=== PATIENT | male | born 1965 | race Caucasian/White ===

== ENCOUNTER → 2023-08-21 | Outpatient (CLI) | payer OTHER ==
--- NOTE | 2023-08-21 08:53 | CTL ---
EXAMINATION TYPE: CT Low Dose Lung DATE OF EXAM ORDERED: 08/21/2023 HISTORY: Long-term tobacco use. Lung cancer screening CT DLP: 110.[address] CTDI: 2.6 mGy Automated exposure control for dose reduction was used. SCREENING VISIT: Baseline COMPARISON: None TECHNIQUE: Low dose computed tomography scan was performed through the chest at 1 mm thick sections a nd reconstructed images in multiple planes at 1 mm and [address] DIAGNOSTIC QUALITY: Satisfactory FINDINGS: LUNG NODULES: Present, detailed below: There is 7 mm round peripheral left lower lobe nodule noted axial image 236. There is a 6 x 4 mm triny pheral left lower lobe nodule noted axial image 262. There is 7 mm posterior peripheral right lower l obe nodule axial image 227. Smaller roughly 4 mm subpleural right middle lobe nodule axial image 185. LUNGS: COPD: Severity: None Fibrosis: Severity: None Lymph nodes: None Other findings: None RIGHT PLEURAL SPACE: Effusion: None Calcification: None Thickening: None Pneumothorax: None LEFT PLEURAL SPACE: Effusion: None Calcification: None Thickening: None Pneumothorax: None HEART: Heart Size: Normal Coronary Calcification: None Pericardial Effusion: None OTHER FINDINGS: Upper abdomen: None Bony thorax: None Supraclavicular region: None Other: None IMPRESSION: Nonspecific scattered small bilateral lower lung nodules up to 7 mm in the bilateral lowe r lobes CT LUNG RAD AND CT CHEST RECOMMENDATION: Lung-Rad 3 Probably Benign: 6 month follow-up LDCT. S Modifier (other clinically significant findings): None
== END | disposition home or self-care (01) ==
LOC: RADCTMAIN 07:03
PROVIDERS: ATTEND Family Medicine
DX: Z12.2 Encounter for screening for malignant neoplasm of respiratory organs (principal); F17.210 Nicotine dependence, cigarettes, uncomplicated; R91.8 Other nonspecific abnormal finding of lung field
CPT/HCPCS: 71271

== ENCOUNTER 2023-08-24 10:57 | Observation (INO) | payer OTHER ==
--- NOTE | 2023-08-24 11:44 | ED ---
Altered Mental Status HPI - General Chief Complaint: Altered Mental Status Stated Complaint: loss of memory Time Seen by Provider: 08/24/23 11:05 Source: patient Mode of arrival: ambulatory Limitations: no limitations - History of Present Illness Initial Comments: 57-year-old male with past medical history of hypertension who presents to the emergency department reporting alterations in his mental status. 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 He remembers sending his son to go do her job while his friend was doing some cleanup work. States that he lost track of time for approximately 1.5-2 hours. He realized that he had a lapse in his memory when he was driving a piece of his equipment back up to the building. Here members that he got a phone call but does not remember what was said over the call. He can't remember if he spoke with a female or male. He denies having a headache or any visual changes. No chest pain or shortness of breath. No unilateral numbness or weak ness. No history of similar in the past. He did start a medication for blood pressure control within the past month. No history of seizures. Patient feels back to his baseline but cannot remember the events of this morning. - Related Data Home Medications Medication Instructions Recorded Confirmed Losartan [Cozaar] 25 mg PO DAILY 08/24/23 08/24/23 Previous Rx's Medication Instructions Recorded Aspirin 325 mg PO DAILY #30 tab 08/25/23 Aspirin EC [Ecotrin Low Dose] 81 mg PO DAILY #30 tab 08/25/23 Nicotine 14Mg/24Hr Patch [Habitrol] 1 patch TRANSDERM DAILY #30 patch 08/25/23 Allergies Allergy/AdvReac Type Severity Reaction Status Date / Time No Known Allergies Allergy Verified 08/24/23 11:39 Review of Systems ROS Statement: Those systems with pertinent positive or pertinent negative responses have been documented in the HPI. ROS Other: All systems not noted in ROS Statement are negative. Past Medical History Past Medical History: Hypertension History of Any Multi-Drug Resistant Organisms: None Reported Past Surgical History: No Surgical Hx Reported Past Psychological History: No Psychological Hx Reported Smoking Status: Current every day smoker Past Alcohol Use History: Occasional Past Drug Use History: None Reported General Exam Limitations: no limitations General appearance: alert, in no apparent distress Head exam: Present: atraumatic, normocephalic, normal inspection Eye exam: Present: normal appearance, PERRL, EOMI. Absent: scleral icterus, conjunctival injection, periorbital swelling ENT exam: Present: normal exam, mucous membranes moist Neck exam: Present: normal inspection. Absent: tenderness, meningismus, lymphadenopathy Respiratory exam: Present: normal lung sounds bilaterally. Absent: respiratory distress, wheezes, rales, rhonchi, stridor Cardiovascular Exam: Present: regular rate, normal rhythm, normal heart sounds. Absent: systolic murmur, diastolic murmur, rubs, gallop, clicks GI/Abdominal exam: Present: soft, normal bowel sounds. Absent: distended, tenderness, guarding, rebound, rigid Extremities exam: Present: normal inspection, full ROM, normal capillary refill. Absent: tenderness, pedal edema, joint swelling, calf tenderness Back exam: Present: normal inspection Neurological exam: Present: alert, oriented X3, CN II-XII intact Psychiatric exam: Present: normal affect, normal mood Skin exam: Present: warm, dry, intact, normal color. Absent: rash Course Vital Signs 08/24/23 08/24/23 08/24/23 11:00 11:27 11:30 Temperature 98.1 F Pulse Rate 65 Pulse Rate [ Knot Picker Cloth ] Respiratory 16 Rate Blood Pressure 173/98 153/94 Blood Pressure [Left Arm] O2 Sat by Pulse 96 97 96 Oximetry 08/24/23 08/24/23 08/24/23 11:45 12:00 12:15 Temperature Pulse Rate 52 L 56 L 53 L Pulse Rate [ Knot Picker Cloth ] Respiratory 18 17 18 Rate Blood Pressure 151/99 143/99 151/98 Blood Pressure [Left Arm] O2 Sat by Pulse 97 96 94 L Oximetry 08/24/23 08/24/23 08/24/23 12:30 12:45 13:00 Temperature Pulse Rate 50 L 51 L 54 L Pulse Rate [ Knot Picker Cloth ] Respiratory 18 19 16 Rate Blood Pressure 140/101 Blood Pressure [Left Arm] O2 Sat by Pulse 97 97 96 Oximetry 08/24/23 08/24/23 08/24/23 16:18 18:25 20:58 Temperature 98.2 F Pulse Rate 55 L 59 L 58 L Pulse Rate [ Knot Picker Cloth ] Respiratory 18 18 18 Rate Blood Pressure 146/100 139/89 132/78 Blood Pressure [Left Arm] O2 Sat by Pulse 100 96 98 Oximetry 08/25/23 08/25/23 08/25/23 02:00 05:00 07:00 Temperature 97.7 F 97.8 F 97.5 F L Pulse Rate Pulse Rate [ 54 L 53 L 53 L Knot Picker Cloth ] Respiratory 16 16 18 Rate Blood Pressure Blood Pressure 110/70 106/68 123/72 [Left Arm] O2 Sat by Pulse 95 96 96 Oximetry Medical Decision Making - Medical Decision Making Was pt. sent in by a medical professional or institution (YAMILET Gallardo, MACHINE FOLDER, urgent care, hospital, or snf...) When possible be specific @ -No Did you speak to anyone other than the patient for history (EMS, parent, family, police, friend...)? What history was obtained from this source @ -significant other, son Did you review nursing and triage notes (agree or disagree)? Why? @ -I reviewed and agree with nursing and triage notes Were old charts reviewed (outside hosp., previous admission, EMS record, old EKG, old radiological studies, urgent care reports/EKG's, snf records)? Report findings @ -No old charts were reviewed Differential Diagnosis (chest pain, altered mental status, abdominal pain women, abdominal pain men, vaginal bleeding, weakness, fever, dyspnea, syncope, headache, dizziness, GI bleed, back pain, seizure, CVA, palpatations, mental health, musculoskeletal)? @ -cva, tia, seizure, complex migraine, transient global amnesia EKG interpreted by me (3pts min.). @ -yes and demonstrates sinus bradycardia with rate of 59. CO interval 143. QRS is 114. QTC of 401. No acute ST segment elevations or depressions X-rays interpreted by me (1pt min.). @ -yes, no acute process CT interpreted by me (1pt min.). @ -yes, no acute process U/S interpreted by me (1pt. min.). @ -None done What testing was considered but not performed or refused? (CT, X-rays, U/S, labs)? Why? @ -None What meds were considered but not given or refused? Why? @ -None Did you discuss the management of the patient with other professionals i.e. YAMILET Gallardo, MACHINE FOLDER, lab, RT, psych nurse, 7th grade social studies teacher, seo coordinator, teacher, commanding officer motorized squad, window caser)? Give summary @ -Dr. cruz Was smoking cessation discussed for >3mins.? @ -No Was critical care preformed (if so, how long)? @ -No Were there social determinants of health that impacted care today? How? (Homelessness, low income, unemployed, alcoholism, drug addiction, transportation, low edu. Level, literacy, decrease access to med. care, [facility], rehab)? @ -No Was there de-escalation of care discussed even if they declined (Discuss DNR or withdrawal of care, Hospice)? DNR status @ -No What co-morbidities impacted this encounter? (DM, HTN, Smoking, COPD, CAD, Cancer, CVA, ARF, Chemo, Hep., AIDS, mental health diagnosis, sleep apnea, morbid obesity)? @ -htn Was patient admitted / discharged? Hospital course, mention meds given and route, prescriptions, significant lab abnormalities, going to OR and other pertinent info. @ -Upon arrival patient was placed into room trauma 2. Thorough history and physical exam is performed. NIH is assessed and is 0 at this time. Patient had an episode of global amnesia. Laboratory studies are obtained. CT is performed of the brain as well as CT angiography. Results are discussed with the patient. Due to his transient encephalopathy and did recommend admission for neurologic consultation. Spoke with Dr. Cruz for admission Undiagnosed new problem with uncertain prognosis? @ -yes Drug Therapy requiring intensive monitoring for toxicity (Heparin, Nitro, Insulin, Cardizem)? @ -No Were any procedures done? @ -No Diagnosis/symptom? @ -acute transient memory loss, possible tia vs transient global amnesia Acute, or Chronic, or Acute on Chronic? @ -acute Uncomplicated (without systemic symptoms) or Complicated (systemic symptoms)? @ -complicated Side effects of treatment? @ -No Exacerbation, Progression, or Severe Exacerbation? @ -No Poses a threat to life or bodily function? How? (Chest pain, [place], [place], pneumonia, PE, COPD, DKA, ARF, appy, cholecystitis, CVA, Diverticulitis, Homicidal, Suicidal, threat to staff... and all critical care pts) @ -yes, patients with symptoms concerning for possible tia, cva, seizure, etc - Lab Data Result diagrams: 08/25/23 06:20 08/25/23 06:20 Lab Results 1108/24/23 08/24/23 Range/Units 11:33 11:33 11:33 WBC 7.1 (3.8-10.6) k/uL RBC 5.58 (4.30-5.90) m/uL Hgb 17.6 H (13.0-17.5) gm/dL Hct 51.3 (39.0-53.0) % MCV 92.0 (80.0-100.0) fL MCH 31.6 (25.0-35.0) pg MCHC 34.3 (31.0-37.0) g/dL RDW 12.9 (11.5-15.5) % Plt Count 194 (150-450) k/uL MPV 10.2 Neutrophils % 60 % Lymphocytes % 28 % Monocytes % 7 % Eosinophils % 3 % Basophils % 1 % Neutrophils # 4.3 (1.3-7.7) k/uL Lymphocytes # 2.0 (1.0-4.8) k/uL Monocytes # 0.5 (0-1.0) k/uL Eosinophils # 0.2 (0-0.7) k/uL Basophils # 0.0 (0-0.2) k/uL PT (10.0-12.5) sec INR (<1.2) APTT (22.0-30.0) sec Carbon Monoxide, Quant 3.7 (<10.0) % Sodium (137-145) mmol/L Potassium (3.5-5.1) mmol/L Chloride (98-107) mmol/L Carbon Dioxide (22-30) mmol/L Anion Gap mmol/L BUN (9-20) mg/dL Creatinine (0.66-1.25) mg/dL Est GFR (CKD-EPI)AfAm (>60 ml/min/1.73 sqM) Est GFR (CKD-EPI)NonAf (>60 ml/min/1.73 sqM) Glucose (74-99) mg/dL POC Glucose (mg/dL) (70-110) mg/dL POC Glu Telecommunications Linesworker ID Calcium (8.4-10.2) mg/dL Total Bilirubin (0.2-1.3) mg/dL AST (17-59) U/L ALT (4-49) U/L Alkaline Phosphatase (38-126) U/L Troponin I (0.000-0.034) ng/mL Total Protein (6.3-8.2) g/dL Albumin (3.5-5.0) g/dL Urine Color Light Yellow Urine Appearance Clear (Clear) Urine pH 6.5 (5.0-8.0) Ur Specific [place] 1.039 H (1.001-1.035) Urine Protein Negative (Negative) Urine Glucose (UA) Negative (Negative) Urine Ketones Negative (Negative) Urine Blood Negative (Negative) Urine Nitrite Negative (Negative) Urine Bilirubin Negative (Negative) Urine Urobilinogen <2.0 (<2.0) mg/dL Ur Leukocyte Esterase Negative (Negative) Urine Opiates Screen Not Detected (NotDetected) Ur Oxycodone Screen Not Detected (NotDetected) Urine Methadone Screen Not Detected (NotDetected) Ur Propoxyphene Screen Not Detected (NotDetected) Ur Barbiturates Screen Not Detected (NotDetected) U Tricyclic Antidepress Not Detected (NotDetected) Ur Phencyclidine Scrn Not Detected (NotDetected) Ur Amphetamines Screen Not Detected (NotDetected) U Methamphetamines Scrn Not Detected (NotDetected) U Benzodiazepines Scrn Not Detected (NotDetected) Urine Cocaine Screen Not Detected (NotDetected) U Marijuana (THC) Screen Not Detected (NotDetected) Serum Alcohol mg/dL 08/24/23 08/24/23 08/24/23 Range/Units 11:45 11:45 11:45 WBC (3.8-10.6) k/uL RBC (4.30-5.90) m/uL Hgb (13.0-17.5) gm/dL Hct (39.0-53.0) % MCV (80.0-100.0) fL MCH (25.0-35.0) pg MCHC (31.0-37.0) g/dL RDW (11.5-15.5) % Plt Count (150-450) k/uL MPV Neutrophils % % Lymphocytes % % Monocytes % % Eosinophils % % Basophils % % Neutrophils # (1.3-7.7) k/uL Lymphocytes # (1.0-4.8) k/uL Monocytes # (0-1.0) k/uL Eosinophils # (0-0.7) k/uL Basophils # (0-0.2) k/uL PT 10.8 (10.0-12.5) sec INR 1.0 (<1.2) APTT 25.0 (22.0-30.0) sec Carbon Monoxide, Quant (<10.0) % Sodium 138 (137-145) mmol/L Potassium 4.2 (3.5-5.1) mmol/L Chloride 104 (98-107) mmol/L Carbon Dioxide 22 (22-30) mmol/L Anion Gap 12 mmol/L BUN 22 H (9-20) mg/dL Creatinine 1.17 (0.66-1.25) mg/dL Est GFR (CKD-EPI)AfAm 79 (>60 ml/min/1.73 sqM) Est GFR (CKD-EPI)NonAf 68 (>60 ml/min/1.73 sqM) Glucose 102 H (74-99) mg/dL POC Glucose (mg/dL) (70-110) mg/dL POC Glu Telecommunications Linesworker ID Calcium 8.7 (8.4-10.2) mg/dL Total Bilirubin 0.6 (0.2-1.3) mg/dL AST 35 (17-59) U/L ALT 40 (4-49) U/L Alkaline Phosphatase 80 (38-126) U/L Troponin I <0.012 (0.000-0.034) ng/mL Total Protein 6.5 (6.3-8.2) g/dL Albumin 4.0 (3.5-5.0) g/dL Urine Color Urine Appearance (Clear) Urine pH (5.0-8.0) Ur Specific [place] (1.001-1.035) Urine Protein (Negative) Urine Glucose (UA) (Negative) Urine Ketones (Negative) Urine Blood (Negative) Urine Nitrite (Negative) Urine Bilirubin (Negative) Urine Urobilinogen (<2.0) mg/dL Ur Leukocyte Esterase (Negative) Urine Opiates Screen (NotDetected) Ur Oxycodone Screen (NotDetected) Urine Methadone Screen (NotDetected) Ur Propoxyphene Screen (NotDetected) Ur Barbiturates Screen (NotDetected) U Tricyclic Antidepress (NotDetected) Ur Phencyclidine Scrn (NotDetected) Ur Amphetamines Screen (NotDetected) U Methamphetamines Scrn (NotDetected) U Benzodiazepines Scrn (NotDetected) Urine Cocaine Screen (NotDetected) U Marijuana (THC) Screen (NotDetected) Serum Alcohol <10 mg/dL 08/24/23 Range/Units 11:54 WBC (3.8-10.6) k/uL RBC (4.30-5.90) m/uL Hgb (13.0-17.5) gm/dL Hct (39.0-53.0) % MCV (80.0-100.0) fL MCH (25.0-35.0) pg MCHC (31.0-37.0) g/dL RDW (11.5-15.5) % Plt Count (150-450) k/uL MPV Neutrophils % % Lymphocytes % % Monocytes % % Eosinophils % % Basophils % % Neutrophils # (1.3-7.7) k/uL Lymphocytes # (1.0-4.8) k/uL Monocytes # (0-1.0) k/uL Eosinophils # (0-0.7) k/uL Basophils # (0-0.2) k/uL PT (10.0-12.5) sec INR (<1.2) APTT (22.0-30.0) sec Carbon Monoxide, Quant (<10.0) % Sodium (137-145) mmol/L Potassium (3.5-5.1) mmol/L Chloride (98-107) mmol/L Carbon Dioxide (22-30) mmol/L Anion Gap mmol/L BUN (9-20) mg/dL Creatinine (0.66-1.25) mg/dL Est GFR (CKD-EPI)AfAm (>60 ml/min/1.73 sqM) Est GFR (CKD-EPI)NonAf (>60 ml/min/1.73 sqM) Glucose (74-99) mg/dL POC Glucose (mg/dL) 104 (70-110) mg/dL POC Glu Telecommunications Linesworker ID Dorothy Hagan Calcium (8.4-10.2) mg/dL Total Bilirubin (0.2-1.3) mg/dL AST (17-59) U/L ALT (4-49) U/L Alkaline Phosphatase (38-126) U/L Troponin I (0.000-0.034) ng/mL Total Protein (6.3-8.2) g/dL Albumin (3.5-5.0) g/dL Urine Color Urine Appearance (Clear) Urine pH (5.0-8.0) Ur Specific [place] (1.001-1.035) Urine Protein (Negative) Urine Glucose (UA) (Negative) Urine Ketones (Negative) Urine Blood (Negative) Urine Nitrite (Negative) Urine Bilirubin (Negative) Urine Urobilinogen (<2.0) mg/dL Ur Leukocyte Esterase (Negative) Urine Opiates Screen (NotDetected) Ur Oxycodone Screen (NotDetected) Urine Methadone Screen (NotDetected) Ur Propoxyphene Screen (NotDetected) Ur Barbiturates Screen (NotDetected) U Tricyclic Antidepress (NotDetected) Ur Phencyclidine Scrn (NotDetected) Ur Amphetamines Screen (NotDetected) U Methamphetamines Scrn (NotDetected) U Benzodiazepines Scrn (NotDetected) Urine Cocaine Screen (NotDetected) U Marijuana (THC) Screen (NotDetected) Serum Alcohol mg/dL Disposition Clinical Impression: Acute encephalopathy Disposition: ADMITTED IP TO THIS [facility] Condition: Stable Is patient prescribed a controlled substance at d/c from ED?: No Time of Disposition: 14:22 Decision to Admit Reason: Admit from EC Decision Date: 08/24/23 Decision Time: 14:23
[2023-08-24 11:56] LABS: Glucose,Whole Blood 104 mg/dL (70-110)
[2023-08-24 12:03] LABS: Basophils % (A) 1 %; Eosinophils # (A) 0.2 k/uL (0-0.7); Eosinophils % (A) 3 %; HCT 51.3 % (39.0-53.0); HGB 17.6 gm/dL (13.0-17.5); Lymphocytes % (A) 28 %; MCH 31.6 pg (25.0-35.0); MCHC 34.3 g/dL (31.0-37.0); Mean Platelet Volume 10.2; Monocytes # (A) 0.5 k/uL (0-1.0); Monocytes % (A) 7 %; Neutrophils # (A) 4.3 k/uL (1.3-7.7); Neutrophils % (A) 60 %; Platelet Count 194 k/uL (150-450); RBC 5.58 m/uL (4.30-5.90); RDW 12.9 % (11.5-15.5); WBC 7.1 k/uL (3.8-10.6)
--- NOTE | 2023-08-24 12:48 | CT ---
EXAMINATION TYPE: CT brain wo con DATE OF EXAM: 08/24/2023 COMPARISON: None available. HISTORY: altered mental status, confusion CT DLP: 1078.6 mGycm Automated exposure control for dose reduction was used. FINDINGS: There is no acute intracranial hemorrhage, mass, mass effect, midline shift, extra axial fluid collec tion or hydrocephalus. The mayo-white distinction is intact without evidence of an acute major vessel infarct. There is some mild mucosal thickening within the anterior ethmoid air cells. The visualized paranasal sinuses mastoid air cells otherwise appear clear. IMPRESSION: NO ACUTE INTRACRANIAL PROCESS.
--- NOTE | 2023-08-24 12:54 | XR ---
EXAMINATION TYPE: XR chest 2V DATE OF EXAM: 08/24/2023 COMPARISON: NONE HISTORY: Shortness of breath TECHNIQUE: Frontal and lateral views of the chest are obtained. FINDINGS: Scattered senescent parenchymal changes noted. Hyperinflation compatible with COPD. No evidence for infiltrate. No evidence for atelectasis. Heart size is stable. Mediastinal structures are stable and grossly unremarkable. No evidence for hilar prominence. Degenerative changes dorsal spine. IMPRESSION: 1. No evidence for acute pulmonary disease.
[2023-08-24 13:34] LABS: Prothrombin Time 10.8 sec (10.0-12.5)
[2023-08-24 13:39] LABS: ALT 40 U/L (4-49); AST 35 U/L (17-59); African American GFR (CKD) 79 (>60 ml/min/1.73 sqM); Alcohol <10 mg/dL; Alkaline Phosphatase 80 U/L (38-126); Anion Gap 12 mmol/L; Blood Urea Nitrogen 22 mg/dL (9-20); Calcium 8.7 mg/dL (8.4-10.2); Carbon Dioxide 22 mmol/L (22-30); Chloride 104 mmol/L (98-107); Glucose 102 mg/dL (74-99); Non-African American GFR(CKD) 68 (>60 ml/min/1.73 sqM); Potassium 4.2 mmol/L (3.5-5.1); Sodium 138 mmol/L (137-145); Total Bilirubin 0.6 mg/dL (0.2-1.3); Total Protein 6.5 g/dL (6.3-8.2)
--- NOTE | 2023-08-24 14:03 | CT ---
EXAMINATION TYPE: CT angio head neck DATE OF EXAM: 08/24/2023 COMPARISON: None HISTORY: altered mental status, confusion CT DLP: 758.1 mGycm CONTRAST: Performed with IV Contrast, patient injected with 65 mL of Isovue 370. Combination Contrast CTA cervical carotids and [place] CTA cervical carotids with 3-D recons truction Contrast CTA of the cervical carotids was performed 3-D reconstruction imaging obtained at a separate workstation. Right carotid system: Mild plaque is seen of the right common carotid artery. There is mild plaque a lso noted at the carotid bulb and proximal ICA. No significant diameter reduction. ECA is patent. Right vertebral artery appears unremarkable. Left carotid system: Mild plaque is seen of the left common carotid artery. There is mild plaque als o noted at the carotid bulb and proximal ICA. No significant diameter reduction. ECA is patent. Lef t vertebral artery appears unremarkable. IMPRESSION: 1. No significant diameter reduction to account for the patient's symptoms. CTA robinson of [place] with 3-D reconstruction Contrast CTA of the robinson of [place] was performed 3-D reconstruction imaging obtained at a separate workstation. Vertebrobasilar system as well as intracranial portions of the internal carotid arteries and their ma sissy tributaries are patent. I do not see evidence for sizable aneurysm or vascular malformation. Pl ease note MRI provides greater sensitivity and specificity. Visualized brain appears grossly unremar kable. IMPRESSION: 1. No significant abnormality. NASCET criteria was used in interpretation of this exam?
[2023-08-24] MEDS ORDERED: NALOXONE 0.4 MG/ML 1 ML VIAL IV PRN (14:23)
[2023-08-24 14:54] LABS: Amphetamine Screen,Urine Not Detected (NotDetected); Barbiturate Screen,Urine Not Detected (NotDetected); Benzodiazepines Screen,Urine Not Detected (NotDetected); Cocaine Screen,Urine Not Detected (NotDetected); Methadone Screen, Urine Not Detected (NotDetected); Opiate Screen,Urine Not Detected (NotDetected); Oxycodone Screen, Urine Not Detected (NotDetected); Phencyclidine Screen,Urine Not Detected (NotDetected); Tricyclic Antidepressant,Urine Not Detected (NotDetected); Urn Cannabinoid Scrn Not Detected (NotDetected)
[2023-08-24 15:16] LABS: Appearance,Urine Clear (Clear); Bilirubin,Urine Negative (Negative); Blood,Urine Negative (Negative); Color,Urine Light Yellow; Glucose,Urine (UA) Negative (Negative); Ketones,Urine Negative (Negative); Leukocyte Esterase,Urine Negative (Negative); Nitrite,Urine Negative (Negative); PH, Urine 6.5 (5.0-8.0); Protein,Urine Negative (Negative); Specific Gravity,Urine 1.039 (1.001-1.035); Urobilinogen,Urine <2.0 mg/dL (<2.0)
[2023-08-24] MEDS: LOSARTAN 25 MG TAB PO SCH (16:20)
[2023-08-24] MEDS: NICOTINE 14MG/24HR PATCH TRANSDERM SCH (16:21)
[2023-08-24] MEDS: HEPARIN SODIUM,PORCINE 5,000 UNIT/ML 1 ML VIAL SQ SCH (20:20)
--- NOTE | 2023-08-24 20:52 | HP ---
HISTORY AND PHYSICAL CHIEF COMPLAINT: Change in mental status. HISTORY OF PRESENT ILLNESS: This is a 57-year-old gentleman with a past medical history of hypertension, apparently forgot to take the blood pressure medication this morning. The patient went to work, and the patient unable to remember what happened approximately for 1-1/2 to 2 hours. The patient came to [facility] with the basic evaluation negative at this time. The CT angio also which I reviewed personally showed no acute abnormality. The basic labs are also negative except for hemoglobin of 17.6. There is no history of any fever, rigor, or chills at this time. PAST MEDICAL HISTORY: History of hypertension. MEDICATIONS: Cozaar. ALLERGIES: None. FAMILY HISTORY: No history of heart disease or strokes in the family. SOCIAL HISTORY: Smoking. Occasional alcohol. REVIEW OF SYSTEMS: Fourteen-point review is negative except as mentioned earlier. PHYSICAL EXAMINATION: VITAL SIGNS: Pulse is 51, blood pressure 140/101, respirations 19. HEENT: Conjunctivae are normal. NECK: No jugular venous distention. CARDIOVASCULAR: S1 and S2 muffled. RESPIRATORY: Breath sounds diminished at the bases. ABDOMEN: Soft and nontender. LEGS: No edema. NERVOUS SYSTEM: No focal deficits. SKIN: No ulcers or rashes. JOINTS: No active deforming arthropathy. LABORATORY DATA: Reviewed. ASSESSMENT: 1. Change in mental status. Rule out transient ischemic attack/seizure disorder or possible transposition of the great arteries. 2. Hypertension. 3. History of nicotine dependence. RECOMMENDATIONS AND DISCUSSION: In this 57-year-old gentleman presented with multiple complex medical issues, we will monitor the patient closely. I would recommend to continue with current medications. Neurology consultation. Full neurovascular workup. Prognosis is guarded because of multiple complex medical issues. Further recommendations to follow. We will initiate home medications as well. Monitor blood pressure closely. We will check the lipids also. EEG has been ordered. MMODL / IJN: [id number] /
[2023-08-24] MEDS ORDERED: ASPIRIN 81 MG PO STA (21:08)
[2023-08-25 04:01] LABS: Glucose,Whole Blood 103 mg/dL (70-110)
--- NOTE | 2023-08-25 08:38 | P.CNNES ---
History of Present Illness Consult date: 08/24/23 Requesting physician: Elisa Moreno Reason for Consult: Acute transient encephalopathy History of Present Illness: Patient is a 57-year-old right-handed male who came to the hospital today at 10:57 AM for episode of altered mental status. Patient states that he remembers going to work at 6:15 AM. He remembers going to have breakfast at work at 7:05 AM. He came back to the shop at 8 AM and started working and at that time he became somewhat totally disoriented, with fuzzy minded. He had a conversation with the client on the phone, and later he did not remember the conversation. Patient has bought [employer] gifts, and had told his son to bring those gifts to the shop and place it at certain place. Patient at that time did not remember who brought those gifts and who brought those gifts to his shop. There was no slurred speech, facial droop, focal numbness, tingling or weakness. However at the time of those symptoms, when patient was talking, sometimes it was not making sense, as he was talking completely out of the context of the discussion. Did not have any gibberish speech. Denies headache. Per patient's , he otherwise has great memory. Because of these concerns, he was brought to the [facility]. Patient did not remember coming to the hospital or going to the breakfast earlier. Overall, there was some discrepancy between duration of these symptoms, per patient was 30-45 minutes, although according to patient's daughter lasted at least one hour. White signs on arrival blood pressure 173/98, pulse rate 65, temperature 98.1. Blood test shows normal CBC, PT/PTT, carbon monoxide level is normal 3.7%. Basic metabolic panel with mildly elevated BUN 22, with normal creatinine 1.17. Hepatic panel and troponin are normal. UA is negative, urine drug screen negative. Blood alcohol level negative. EKG shows sinus bradycardia. CT head showed no acute intracranial process. I personally reviewed CT head, agree with the findings. Chest x-ray revealed no evidence for acute cardiopulmonary disease. Patient states that in the past month, he had 2 episodes of diplopia. It happ ened about a week ago and then 3 weeks prior, each of them lasting for 5 minutes. He suddenly felt that his eyes were crossed, and his vision was fine looking to the right, but had double vision looking straight and to the left. The diplopia would go away with closing one or the other eye. He did not have any other associated symptoms. He did not seek any medical attention for this. Patient has history of hypertension, denies diabetes. Patient has smoked 1-2 pack per day for last 20 years. He drinks alcohol, only little amount. Not a heavy drinker. No marijuana, no other drug use. Patient takes losartan, does not take any antiplatelet medication. Review of Systems Constitutional: Denies chills, Denies fever Eyes: left diplopia, denies blurred vision, denies pain, denies loss of vision Ears: deny: decreased hearing, ear discharge Ears, nose, mouth and throat: Denies headache, Denies sore throat Cardiovascular: Denies chest pain, Denies shortness of breath Respiratory: Reports congestion, Reports cough with sputum, Denies excessive sputum, Denies wheezing Gastrointestinal: Denies abdominal pain, Denies diarrhea, Denies nausea, Denies vomiting Genitourinary: Denies dysuria, Denies incontinence, Denies urinary frequency Musculoskeletal: Reports low back pain, Denies myalgias, Denies neck pain (some days) Integumentary: Denies pruritus, Denies rash Neurological: Reports as per HPI Psychiatric: Denies anxiety, Denies depression Endocrine: Reports fatigue, Denies weight change Hematologic/Lymphatic: Denies easy bleeding, Denies easy bruising Past Medical History Past Medical History: Hypertension History of Any Multi-Drug Resistant Organisms: None Reported Past Surgical History: No Surgical Hx Reported Past Psychological History: No Psychological Hx Reported Smoking Status: Current every day smoker Past Alcohol Use History: Occasional Past Drug Use History: None Reported Medications and Allergies Home Medications Medication Instructions Recorded Confirmed Type Losartan [Cozaar] 25 mg PO DAILY 08/24/23 08/24/23 History Allergies Allergy/AdvReac Type Severity Reaction Status Date / Time No Known Allergies Allergy Verified 08/24/23 11:39 Physical Examination - Vital Signs Vital Signs: Vital Signs Temp Pulse Resp BP Pulse Ox 08/24/23 18:25 59 L 18 139/89 96 08/24/23 16:18 55 L 18 146/100 100 08/24/23 13:00 54 L 16 96 08/24/23 12:45 51 L 19 97 08/24/23 12:30 50 L 18 140/101 97 08/24/23 12:15 53 L 18 151/98 94 L 08/24/23 12:00 56 L 17 143/99 96 08/24/23 11:45 52 L 18 151/99 97 08/24/23 11:30 153/94 96 08/24/23 11:27 97 08/24/23 11:00 98.1 F 65 16 173/98 96 Intake and Output 08/24/23 08/24/23 08/24/23 06:59 14:59 22:59 Other: Weight 106.594 kg Patient is a middle aged male, in no acute distress. Patient is alert awake oriented to time place and person. Speech and language functions are normal. Patient can name and repeat very well. No aphasia or dysarthria. Attention, concentration and fund of knowledge is adequate. On cranial nerve examination, pupils are equal, round and reacting to light, visual martinez are full on confrontation, with no neglect on double simultaneous stimulation. Extraocular muscles are intact with no nystagmus. Face is symmetric, tongue protrudes to the midline. Palatal elevation and sensation normal, hearing and shoulder shrug normal, facial sensation normal. On muscle strength testing, there is no pronator drift and the strength is normal in arms and legs distally and proximally. Deep tendon reflexes are symmetric 2 in the biceps, 2 brachioradialis, 3 at the knees, 2 ankles and plantars downgoing bilaterally. Sensory to touch is equal with no neglect on double simultaneous stimulation. Cerebellar function showed no ataxia for fzjolg-lc-ahmi testing. No dysdiadochokinesia. No ataxia for ojpv-my-jtyr testing on either side. Tone and bulk of muscles normal. Gait deferred.. On general examination, there is no carotid bruit or murmur, S1-S2 audible. Chest is clear on consultation. Abdomen is soft nontender. No organomegaly, bowel sounds present. Peripheral pulses are present. No peripheral edema. Results - Laboratory Findings CBC and BMP: 08/24/23 11:33 08/24/23 11:45 Abnormal Lab Findings: Abnormal Labs 08/24/23 08/24/23 08/24/23 11:33 11:33 11:45 Hgb 17.6 H BUN 22 H Glucose 102 H Ur Specific Christoval 1.039 H Assessment and Plan Assessment: * Episode of loss of memory for about 45-60 minutes. Possible variant of transient global amnesia. Rule out TIA, less likely seizure. * Two episodes of transient diplopia in the last month, each lasting for 5 minutes, also suspect TIAs * Hypertension * Tobacco use Plan: * Patient will undergo stroke/TIA workup. * MRI of the brain without contrast, evaluate for acute CVA * 2-D echo with bubble study to rule out PFO * CTA head and neck showed: No significant diameter reduction took on for the patient's symptoms. Normal CTA of the head. * EEG rule out any epileptiform activity. * Fasting a.m. lipid panel * Hemoglobin A1c * Optimize control of blood pressure. * Recommend complete tobacco cessation. * Patient was given aspirin 324 mg 1 dose and will be maintained on aspirin 325 mg. * Neuro checks every shift * Telemetry monitoring rule out any arrhythmia * Neurology will continue to follow. Thank you for the consult.
[2023-08-25] MEDS ORDERED: ASPIRIN 325 MG TAB PO SCH (09:00)
[2023-08-25 09:26] VITALS: RESP 18
[2023-08-25] MEDS: LOSARTAN 25 MG TAB PO SCH (10:30)
[2023-08-25] MEDS: NICOTINE 14MG/24HR PATCH TRANSDERM SCH (10:30)
[2023-08-25] MEDS: HEPARIN SODIUM,PORCINE 5,000 UNIT/ML 1 ML VIAL SQ SCH (10:30)
[2023-08-25 10:56] LABS: Basophils # (A) 0.08 X 10*3/uL (0.00-0.10); Basophils % (A) 1.2 %; Eosinophils # (A) 0.28 X 10*3/uL (0.04-0.35); Eosinophils % (A) 4.2 %; HCT 49.9 % (39.6-50.0); HGB 16.9 g/dL (13.0-17.0); Lymphocytes # (A) 1.59 X 10*3/uL (0.90-5.00); Lymphocytes % (A) 23.9 %; MCH 31.1 pg (27.0-32.0); MCHC 33.9 g/dL (32.0-37.0); MCV 91.7 FL (80.0-97.0); Mean Platelet Volume 10.1 FL (9.5-12.2); Monocytes # (A) 0.63 X 10*3/uL (0.20-1.00); Monocytes % (A) 9.5 %; NRBC Per 100 WBC 0 X 10*3/uL (0.00-0.01); Neutrophils # (A) 4.01 X 10*3/uL (1.80-7.70); Neutrophils % (A) 60.3 %; Platelet Count 200 X 10*3/uL (140-440); RBC 5.44 X 10*6/uL (4.40-5.60); WBC 6.65 X 10*3/uL (4.50-10.00)
--- NOTE | 2023-08-25 13:18 | MR ---
EXAMINATION TYPE: MR brain wo con DATE OF EXAM: 08/25/2023 12:36 PM CLINICAL INDICATION:Male, 57 years old with history of Stroke/TIA, Altered mental status COMPARISON: 08/24/2023. TECHNIQUE: Multi planar, multi sequence imaging was performed through the brain including: T1, T2, In version recovery, Diffusion weighted imaging, and gradient echo imaging. No gadolinium was given. FINDINGS: The mayo-white junctions, ventricular system, and cisterns appear unremarkable. Scattered foci of hi gh T2 signal intensity are present most pronounced in the left temporal lobe and right parietal lobe. Midline structures show no abnormality. Diffusion-weighted imaging shows no evidence of restricted d iffusion. The susceptibility weighted images do not reveal any evidence for micro-hemorrhage. The bone marrow signal is within normal limits. Paranasal sinuses and mastoid air cells: No significant paranasal sinus disease. Visualized orbits: Orbital contents are intact. IMPRESSION: 1. No evidence of intracranial mass or acute/subacute infarct. 2. Nonspecific white matter changes, likely secondary to small vessel ischemic disease.
[2023-08-25 13:33] LABS: Chol/HDL Ratio 4.34 Ratio; LDL Cholesterol,Calculated 120.1 mg/dL (0.0-131.0)
[2023-08-25 14:04] LABS: BUN/Creat Ratio 17.73 Ratio (12.00-20.00); Blood Urea Nitrogen 19.5 mg/dL (9.0-27.0); Calcium 8.9 mg/dL (8.7-10.3); Carbon Dioxide 20.3 mmol/L (21.6-31.8); Chloride 110 mmol/L (96-109); Glucose 100 mg/dL (70-110); Potassium 5.2 mmol/L (3.5-5.5); Sodium 141 mmol/L (135-145)
[2023-08-25 14:58] VITALS: BP 132/73; PULSE 54; TEMP 97.4
--- NOTE | 2023-08-25 15:37 | CA ---
Transthoracic Echo Report Name: Cornell Tijerina Age: 57 Gender: M : 1965 Exam Date: 08/25/2023 14:02 Exam Location: [facility] Ht (in): 74 Wt (lb): 235 Ordering Physician: Rossy Brady MD Attending/Referring Phys: Roller Painter Eveline Caruso RDCS Procedure CPT: Indications: recurrent TIA Cardiac Hx: Technical Quality: Fair Contrast 1: Agitated Saline Total Dose (mL): 10 Contrast 2: Total Dose (mL): MEASUREMENTS (Male / Female) Normal Values 2D ECHO LV Diastolic Diameter PLAX 4.9 cm 4.2 - 5.9 / 3.9 - 5.3 cm LV Systolic Diameter PLAX 3.5 cm IVS Diastolic Thickness 1.3 cm 0.6 - 1.0 / 0.6 - 0.9 cm LVPW Diastolic Thickness 1.2 cm 0.6 - 1.0 / 0.6 - 0.9 cm LV Relative Wall Thickness 0.5 RV Internal Dim ED PLAX 2.8 cm LA Volume 48.7 cm??? 18 - 58 / 22 - 52 cm??? LA Volume Index 20.4 cm???/m??? 16 - 28 cm???/m??? M-MODE Aortic Root Diameter MM 3.4 cm LA Systolic Diameter MM 4.3 cm LA Ao Ratio MM 1.3 AV Cusp Separation MM 2.6 cm DOPPLER AV Peak Velocity 131.8 cm/s AV Peak Gradient 6.9 mmHg AV Mean Velocity 94.3 cm/s AV Mean Gradient 3.9 mmHg AV Velocity Time Integral 27.3 cm LVOT Peak Velocity 124.1 cm/s LVOT Peak Gradient 6.2 mmHg LVOT Velocity Time Integral 27.6 cm MV Area PHT 3.6 cm??? Mitral E Point Velocity 105.8 cm/s Mitral A Point Velocity 65.5 cm/s Mitral E to A Ratio 1.6 MV Deceleration Time 212.9 ms MV E' Velocity 8.1 cm/s Mitral E to MV E' Ratio 13.0 TR Peak Velocity 269.7 cm/s TR Peak Gradient 29.1 mmHg Right Ventricular Systolic Press 34.1 mmHg FINDINGS Left Ventricle Mildly increased left ventricular wall thickness. Left ventricular cavity size normal. Normal left ventricular systolic function with no obvious regional wall motion abnormalities. Left ventricular ejection fraction is estimated at 55-60 %. Normal left ventricular diastolic filling pattern. Right Ventricle Normal right ventricular size and function. Right ventricular systolic pressure within normal limits. Right Atrium Normal right atrial size. Negative agitated saline bubble study for right to left shunt. Left Atrium Normal left atrial size. Mitral Valve Structurally normal mitral valve. Mild mitral annular calcification. No mitral stenosis, regurgitation or prolapse. Aortic Valve Trileaflet aortic valve. No aortic valve stenosis or regurgitation. Tricuspid Valve Structurally normal tricuspid valve. Mild tricuspid regurgitation. Pulmonic Valve Trace pulmonic regurgitation. Pericardium No pericardial effusion. Aorta Normal size aortic root and proximal ascending aorta. CONCLUSIONS Normal LV function Previewed by: Dr. Shaun Lao MD (Electronically Signed) Final Date: 25 August 2023 15:36
[2023-08-25] MEDS ORDERED: ATORVASTATIN 20 MG TAB PO SCH (21:00)
--- NOTE | 2023-08-26 00:20 | EEG ---
ELECTROENCEPHALOGRAM REPORT PREAMBLE: This is a 57-year-old male who came with transient encephalopathy. Rule out TIA versus TGA. EEG FINDINGS: This is a 21-channel digital EEG recorded with video component, utilizing 10/20 international system with referential and bipolar montage. Background consists of well- developed, moderately well regulated, mixed frequencies of 10 hertz alpha, with some low-voltage fast frequency beta activity seen in bihemispheric region. Background is posterior dominant and reactive to eye opening and closing. Photic driving response was not clearly seen. Some drowsiness was seen with appearance of bilaterally symmetric theta frequency rhythm. Some stage 2 sleep was seen with presence of sleep spindles. No focal or generalized epileptiform activity was seen. EKG channel showed no arrhythmia. IMPRESSION: This is a normal EEG during wakefulness, drowsiness and brief stage 2 sleep. No focal, lateralized or epileptiform activity was seen. MMRUTHIE / SMOOTHN: [id number] /
--- NOTE | 2023-08-26 07:47 | DS ---
DISCHARGE SUMMARY FINAL DIAGNOSES: 1. Change in mental status, possible acute TIA versus transient global amnesia. 2. Hypertension. 3. History of nicotine dependence. DISCHARGE DISPOSITION: Discharged in stable condition, guarded prognosis. HISTORY OF PRESENT ILLNESS: This 57-year-old gentleman admitted with some confusion lasted for about 1.5 to 2 hours. The patient is nonfocal, seen by Neurology. The evaluations are negative so far. Brain MRI findings are pending. The brain MRI and 2D echo were normal. The patient was discharged in stable condition. Guarded prognosis. PHYSICAL EXAMINATION: VITALS: Stable. CARDIOVASCULAR: S1, S2. ABDOMEN: Soft. NERVOUS SYSTEM: No focal deficits. The patient will be discharged with Habitrol 14 and aspirin 81 mg and continue and closely follow with Dr. Adamson and neuro MMRUTHIE / SMOOTHN: [id number] / BECK
--- NOTE | 2023-08-28 11:09 | P.PN ---
Subjective Progress Note Date: 08/25/23 Patient was seen for a follow-up. Patient is laying comfortably in the bed. All symptoms resolved. No new concerns. Objective - Vital Signs Vital signs: Vital Signs Temp 97.4 F L 08/25/23 14:51 Pulse 54 L 08/25/23 14:51 Resp 18 08/25/23 14:51 BP 132/73 08/25/23 14:51 Pulse Ox 95 08/25/23 14:51 FiO2 Intake & Output 08/24/23 08/25/23 08/25/23 18:59 06:59 18:59 Intake Total 240 Balance 240 Weight 106.594 kg 106.594 kg Intake: Oral 240 - Exam Examination is normal. - Labs CBC & Chem 7: 08/25/23 06:20 08/25/23 06:20 Labs: Abnormal Lab Results - Last 24 Hours (Table) 08/25/23 Range/Units 06:20 Chloride 110 H (96-109) mmol/L Carbon Dioxide 20.3 L (21.6-31.8) mmol/L Assessment and Plan Assessment: * Episode of loss of memory for about 45-60 minutes. Possible variant of transient global amnesia. Rule out TIA, less likely seizure. * Two episodes of transient diplopia in the last month, each lasting for 5 minutes, also suspect TIAs * Hypertension * Hyperlipidemia * Tobacco use Plan: * Patient will undergo stroke/TIA workup. * MRI of the brain without contrast, revealed no evidence of intracranial mass or acute/subacute infarct. Nonspecific white matter changes, likely secondary to small vessel ischemic disease. I personally reviewed MRI, agree with the findings. * 2-D echo revealed normal left ventricular size, with no obvious regional wall motion abnormalities. EF is 55-60%. Normal size of the left and right atrium. No embolic source. * CTA head and neck showed: No significant diameter reduction took on for the patient's symptoms. Normal CTA of the head. * EEG was normal during wakefulness, drowsiness and brief stage II sleep. No focal, lateralized or epileptiform activity was seen. * Fasting a.m. lipid panel cholesterol 186, LDL 120, HDL 42, triglycerides 115. Patient was recommended to start Lipitor 20 mg daily to decrease LDL at least < 100. Patient declined statins, and preferred dietary adjustment. He was recommended to have repeat lipid panel in 3 months and if it is still elevated, to go on statins. * Hemoglobin A1c 5.8 * Optimize control of blood pressure. * Recommend complete tobacco cessation. * Patient was given aspirin 324 mg 1 dose and will be maintained on aspirin 325 mg for 30 days, then may switch to aspirin 81 mg daily. * Telemetry monitoring showing no arrhythmia. * Neurologically clear for discharge.
== END 2023-08-25 17:00 | disposition home or self-care (01) ==
LOC: EC 10:57 → 6NMEDSUR 14:23
PROVIDERS: ADMIT Hospitalist; ATTEND Hospitalist
DX: R41.82 Altered mental status, unspecified (principal); R41.3 Other amnesia; H53.2 Diplopia; I10 Essential (primary) hypertension; E78.5 Hyperlipidemia, unspecified; R00.1 Bradycardia, unspecified; F17.210 Nicotine dependence, cigarettes, uncomplicated; Z79.82 Long term (current) use of aspirin; Z79.899 Other long term (current) drug therapy
CPT/HCPCS: 96372; 99285; 36415; 95816; 93005; 93306; 80061; 80053; 80048; 82375; 84484; 85025 ×2; 85610; 85730; 81003; 80306; 80320; 83036; 71046; 70496; 70450; 70498; 70551; G0378 ×2; J1644; Q9967

== ENCOUNTER 2023-11-20 08:47 | Day surgery (SDC) | payer BC, OTHER ==
--- NOTE | 2023-11-20 07:33 | P.GSHP ---
History of Present Illness H&P Date: 11/20/23 Chief Complaint: Incarcerated right inguinal hernia 58-year-old male presents with complaints of bulge right groin. Present for the last few years. Patient does a lot of heavy work with concrete. Sore at times. No history of previous hernias. No nausea or vomiting or change in bowel habits. Past Medical History Past Medical History: CVA/TIA, Hypertension Additional Past Medical History / Comment(s): possible TIA in 2022-nothing found on testing & no residual effects History of Any Multi-Drug Resistant Organisms: None Reported Past Surgical History: No Surgical Hx Reported Additional Past Anesthesia/Blood Transfusion Reaction / Comment(s): pt has never had anesthesia, no family problems as far as he knows Smoking Status: Current every day smoker - Past Family History Mother Family Medical History: No Reported History Medications and Allergies Home Medications Medication Instructions Recorded Confirmed Type Losartan [Cozaar] 25 mg PO DAILY 08/24/23 11/16/23 History Aspirin EC [Ecotrin Low Dose] 81 mg PO DAILY #30 tab 08/25/23 11/16/23 Rx Multivitamins, Thera [Multivitamin 1 tab PO DAILY 11/16/23 11/16/23 History (formulary)] Allergies Allergy/AdvReac Type Severity Reaction Status Date / Time No Known Allergies Allergy Verified 11/16/23 10:40 Surgical - Exam Physical exam: General: Well-developed, well-nourished HEENT: Normocephalic, sclerae nonicteric Abdomen: Nontender, nondistended, large incarcerated right inguinal hernia extending into the deep scrotum Extremities: No edema Neuro: Alert and oriented Assessment and Plan (1) Incarcerated inguinal hernia Narrative/Plan: 58-year-old male with incarcerated right inguinal hernia. Will proceed with open repair right inguinal hernia with mesh, possible orchiectomy at this time. Risks of bleeding, infection, recurrence, bladder and bowel injury, numbness, nerve injury, possible need for drain placement, possible need for orchiectomy were discussed with the patient. The patient understands and wishes to proceed. Status: Acute Code(s): K40.30 - UNIL INGUINAL HERNIA, W OBST, W/O GANGR, NOT SPCF RECUR SNOMED Code(s): 041677634
[~2023-11-20 08:47] MED LIST: HYDROmorphone 0.5 MG/0.5 ML SYRINGE IVP PRN; LIDOCAINE 1% (10MG/ML) FOR IV START INTRADERMA PRN
[2023-11-20] MEDS: LACTATED RINGERS 1,000 ML IV SCH (09:36)
[2023-11-20] MEDS: ACETAMINOPHEN TAB 500 MG TAB PO PRN (09:43)
[2023-11-20] MEDS: DEXAMETHASONE SOD PHOSPHATE 4 MG/ML 1 ML VIAL IV ONE (09:44)
[2023-11-20] MEDS: HEPARIN SODIUM,PORCINE 5,000 UNIT/ML 1 ML VIAL SQ PRN (09:44)
[2023-11-20] MEDS: ONDANSETRON 4 MG/2 ML VIAL IVP ONE (09:44)
[2023-11-20] MEDS: MIDAZOLAM 2 MG/2 ML VIAL IV PRN (09:52)
--- NOTE | 2023-11-20 10:04 | P.ANPRN ---
Procedure Note - Anesthesia - Nerve Block Performed Right Transversus Abdominis Single Time Out Performed: Yes Date of Procedure: 11/20/23 Procedure Start Time: :15 Procedure Stop Time: :20 Location of Patient: PreOp Indication: Acute Post-Operative Pain, Analgesia, Requested by Surgeon Sedation Type: Sedate with meaningful contact maintained Preparation: Sterile Prep Position: Supine Catheter: None Needle Types: Pajunk Needle Gauge: 21 Ultrasound used to visualize needle placement: Yes Ultrasound used to observe medication spread: Yes Injectate: 0.5% Ropivacaine (see comment for volume) (Ropivacaine 25 ml+ dexamethason 4mg) Blood Aspirated: No Pain Paresthesia on Injection Noted: No Resistance on Injection: Normal Image Stored and Saved: Yes Events: Uneventful and Well Tolerated
[2023-11-20] MEDS ORDERED: IPRATROPIUM-ALBUTEROL 3 ML NEB INHALATION STA (10:10)
[2023-11-20] MEDS: IPRATROPIUM-ALBUTEROL 3 ML NEB ONE (10:11)
[2023-11-20] MEDS ORDERED: NEOSTIGMINE 1 MG/ML 10 ML VIAL ONE (10:40)
[2023-11-20] MEDS ORDERED: PROPOFOL 10 MG/ML 20 ML VIAL IV ONE (10:40)
[2023-11-20] MEDS ORDERED: ROPIVACAINE 5 MG/ML 30 ML VIAL ONE (10:40)
[2023-11-20] MEDS ORDERED: LIDOCAINE 1% INJ 10MG/ML (20 ML MDV) ONE (10:40)
[2023-11-20] MEDS ORDERED: SUCCINYLCHOLINE CHLORIDE 200 MG/10 ML VIAL IV ONE (10:40)
[2023-11-20] MEDS ORDERED: ROCURONIUM 10 MG/ML (5 ML VIAL) IV ONE (10:40)
[2023-11-20] MEDS ORDERED: PHENYLEPHRINE 10 MG/ML VIAL ONE (10:40)
[2023-11-20] MEDS ORDERED: fentaNYL (PF) 50 MCG/ML 2 ML AMP ONE (10:40)
[2023-11-20] MEDS ORDERED: DEXAMETHASONE SOD PHOSPHATE 4 MG/ML 1 ML VIAL ONE (10:40)
[2023-11-20] MEDS ORDERED: GLYCOPYRROLATE 0.2 MG/ML 2 ML VIAL ONE (10:40)
[2023-11-20] MEDS ORDERED: ePHEDrine 50 MG/ML 1 ML VIAL ONE (10:40)
[2023-11-20] MEDS: BUPIVACAINE (PF) 0.25% 30 ML VIAL SQ ONE (10:41)
[2023-11-20] MEDS: LACTATED RINGERS 1,000 ML IV ONE (11:51)
--- NOTE | 2023-11-20 12:38 | P.OP ---
Date of Procedure: 11/20/23 Procedure(s) Performed: PREOPERATIVE DIAGNOSIS: Incarcerated right inguinal hernia POSTOPERATIVE DIAGNOSIS: Same PROCEDURE: Open repair incarcerated right inguinal hernia with mesh SURGEON: Dr. Bush ANESTHESIA: General OPERATIVE PROCEDURE DETAILS: Patient was placed in the operating table in the supine position and placed under general anesthesia. An oblique incision was made in the right groin. Dissection down through the subcutaneous tissues took place using electrocautery. The external oblique fascia was incised using a scalpel. This opening was lengthened using the Metzenbaum scissors. With some difficulty we were able to finally reduce all of the contents of this large scrotal hernia. The spermatic cord was then encircled with a Union drain. The spermatic cord structures were identified and preserved. Careful dissection revealed a very large indirect hernia sac. This was carefully dissected back to the internal inguinal ring where it was ligated using 2 separate 0 silk stick tie sutures. The patient had 2 separate cord lipomas that were ligated as well using 0 silk ties. No signs of direct hernia were noted. A 3" x 6" Prolene mesh was cut to fit on the exposed fascia. This was sutured to the pubic tubercle the folding edge of the inguinal ligament and the conjoined tendon using interrupted 0 Vicryl sutures. A slit was created in the mesh and the mesh was wrapped around the spermatic cord and sutured back to itself. The external oblique was then reapproximated using a running 2-0 Vicryl suture. The subcutaneous tissues were reapproximated using a 3-0 Vicryl sutures. The skin was closed using 4-0 Monocryl sutures. Skin glue and sterile dressings were then applied. TYPE OF MESH USED: Flat Prolene LOCATION OF MESH: [place] FIXATION: 0 Vicryl PREOPERATIVE DISCUSSION ON SMOKING CESSASTION: Yes PREOPERATIVE DISCUSSION ON MORBID OBESITY: Yes PREOPERATIVE DISCUSSION ON APPROPRIATE USE OF NARCOTIC USE: Yes PREOPERATIVE EDUCATION: Multi Modal, Smoking Cessation and Weight Loss with BMI over 35. DISPOSITION: Stable to recovery room
[2023-11-20 13:08] VITALS: TEMP 97.6
[2023-11-20 13:38] VITALS: RESP 16
[2023-11-20 14:09] VITALS: BP 120/71; PULSE 64
[2023-11-20] MEDS ORDERED: ACETAMINOPHEN TAB 325 MG TAB PO SCH (18:00)
[2023-11-20] MEDS ORDERED: IBUPROFEN 600 MG TAB PO SCH (21:00)
== END 2023-11-20 14:21 | disposition home or self-care (01) ==
LOC: OR 08:47
PROVIDERS: ATTEND Surgery
DX: K40.30 Unilateral inguinal hernia, with obstruction, without gangrene, not specified as recurrent (principal); G89.18 Other acute postprocedural pain; I10 Essential (primary) hypertension; F17.200 Nicotine dependence, unspecified, uncomplicated; Z98.890 Other specified postprocedural states; Z86.73 Personal history of transient ischemic attack (TIA), and cerebral infarction without residual deficits; Z79.82 Long term (current) use of aspirin; Z79.899 Other long term (current) drug therapy
CPT/HCPCS: 64488; 88302; 49507; C1781; J2250; J0330; J1644; J1100; J2710; J0690; J2405; J2001; J3010; J2795; J2704; J2371; J0665

== ENCOUNTER 2023-12-03 11:54 | Emergency (ER) | payer BC ==
--- NOTE | 2023-12-03 12:18 | ED ---
Anxiety HPI - General Chief Complaint: Recheck/Abnormal Lab/Rx Stated Complaint: loss of sleep,anxiety Time Seen by Provider: 12/03/23 12:16 Source: patient, RN notes reviewed, old records reviewed Mode of arrival: ambulatory - History of Present Illness Initial Comments: This is a 58-year-old male to the ER for evaluation today. Patient states he is going through significantly diarrhea tach. Restlessness and does feel stressed out. Patient states the symptoms been going on for going on a few days ago unsure of exact unsure of exact onset but he states this is definitely been getting worse. Patient has no recent medication changes he has had similar symptoms in the past and was prescribed hydroxyzine for these which she does not take off and he still has the prescription bottle from 4 years ago. He did not attempt to take this today. He otherwise takes no medications has no drugs or alcohol and denies any significant new stressors denies homicidal or suicidal thoughts patient states his main concern recommend to the ER today is making sure he is not having a heart attack MD Complaint: anxiety, heart racing -: days(s) Symptoms: chest pain, palpitations Place: home Previous History of Same: Yes Severity: moderate Quality: constant Provoking factors: emotional stress, recent /illness of family member Improves With: nothing Worsens With: nothing Associated symptoms: palpitations - Related Data Home Medications: Home Medications Medication Instructions Recorded Confirmed Losartan [Cozaar] 25 mg PO DAILY 08/24/23 11/20/23 Multivitamins, Thera [Multivitamin 1 tab PO DAILY 11/16/23 11/20/23 (formulary)] Previous Rx's Medication Instructions Recorded Aspirin EC [Ecotrin Low Dose] 81 mg PO DAILY #30 tab 08/25/23 oxyCODONE HCL [OxyIR] 5 mg PO Q6H PRN 3 Days #6 tab 11/20/23 LORazepam [Ativan] 2 mg PO TID 3 Days #9 tab 12/03/23 Allergies/Adverse Reactions: Allergies Allergy/AdvReac Type Severity Reaction Status Date / Time No Known Allergies Allergy Verified 12/03/23 11:59 Review of Systems ROS Statement: Those systems with pertinent positive or pertinent negative responses have been documented in the HPI. ROS Other: All systems not noted in ROS Statement are negative. Past Medical History Past Medical History: CVA/TIA, Hypertension Additional Past Medical History / Comment(s): possible TIA in 2022-nothing found on testing & no residual effects History of Any Multi-Drug Resistant Organisms: None Reported Past Surgical History: Hernia Repair Additional Past Anesthesia/Blood Transfusion Reaction / Comment(s): pt has never had anesthesia, no family problems as far as he knows Past Psychological History: No Psychological Hx Reported Smoking Status: Current some day smoker Past Alcohol Use History: None Reported Past Drug Use History: None Reported - Past Family History Mother Family Medical History: No Reported History General Exam Limitations: no limitations General appearance: alert, in no apparent distress, anxious Head exam: Present: atraumatic, normocephalic, normal inspection Eye exam: Present: normal appearance, PERRL, EOMI. Absent: scleral icterus, conjunctival injection, periorbital swelling ENT exam: Present: normal exam, mucous membranes moist Neck exam: Present: normal inspection. Absent: tenderness, meningismus, lymphadenopathy Respiratory exam: Present: normal lung sounds bilaterally. Absent: respiratory distress, wheezes, rales, rhonchi, stridor Cardiovascular Exam: Present: regular rate, normal rhythm, normal heart sounds. Absent: systolic murmur, diastolic murmur, rubs, gallop, clicks GI/Abdominal exam: Present: soft, normal bowel sounds. Absent: distended, tenderness, guarding, rebound, rigid Extremities exam: Present: normal inspection, full ROM, normal capillary refill. Absent: tenderness, pedal edema, joint swelling, calf tenderness Back exam: Present: normal inspection Neurological exam: Present: alert, oriented X3, CN II-XII intact Psychiatric exam: Present: normal affect, normal mood Skin exam: Present: warm, dry, intact, normal color. Absent: rash Course Vital Signs 12/03/23 12/03/23 12/03/23 11:57 12:18 13:02 Temperature 97.4 F L 97.9 F Pulse Rate 81 63 59 L Respiratory 20 18 16 Rate Blood Pressure 156/94 139/92 126/96 O2 Sat by Pulse 97 96 96 Oximetry 12/03/23 12/03/23 12/03/23 13:56 14:00 14:58 Temperature 98.7 F Pulse Rate 54 L 50 L 55 L Respiratory 16 18 16 Rate Blood Pressure 126/80 121/74 144/89 O2 Sat by Pulse 96 95 98 Oximetry - Reevaluation(s) Reevaluation #1: 12/03/23 13:07 Medical records reviewed Reevaluation #2: 12/03/23 13:07 Patient symptoms improved Reevaluation #3: 12/03/23 14:42 Patient informed of results and questions answered Reevaluation #4: Was pt. sent in by a medical professional or institution (YAMILET Gallardo, STATISTICIAN [employer]PLIED, urgent care, hospital, or usp...) When possible be specific @ -no Did you speak to anyone other than the patient for history (EMS, parent, family, police, friend...)? What history was obtained from this source @ -no Did you review nursing and triage notes (agree or disagree)? Why? @ -agree Are old charts reviewed (outside hosp., previous admission, EMS record, old EKG, old radiological studies, urgent care reports/EKG's, usp records)? Rep ort findings @ -yes Differential Diagnosis (chest pain, altered mental status, abdominal pain women, abdominal pain men, vaginal bleeding, weakness, fever, dyspnea, syncope, headache, dizziness, GI bleed, back pain, seizure, CVA, palpatations, mental health, musculoskeletal)? @ -prior EKG interpreted by me (3pts min.). @ -yes X-rays interpreted by me (1pt min.). @ -no CT interpreted by me (1pt min.). @ -no U/S interpreted by me (1pt. min.). @ -no What testing was considered but not performed or refused? (CT, X-rays, U/S, labs)? Why? @ -none What meds were considered but not given or refused? Why? @ -none Did you discuss the management of the patient with other professionals (precious ruiz i.e. YAMILET Gallardo, STATISTICIAN [employer], lab, RT, psych nurse, social insurance analyst, bander and cellophaner machine, teacher, svp chief marketing officer, community case manager)? Give summary @ -no Was smoking cessation discussed for >3mins.? @ -no Was critical care preformed (if so, how long)? @ -no Were there social determinants of health that impacted care today? How? (Homelessness, low income, unemployed, alcoholism, drug addiction, transportation, low edu. Level, literacy, decrease access to med. care, alf, rehab)? @ -none Was there de-escalation of care discussed even if they declined (Discuss DNR or withdrawal of care, Hospice)? DNR status @ -no What co-morbidities impacted this encounter? (DM, HTN, Smoking, COPD, CAD, Cancer, CVA, ARF, Chemo, Hep., AIDS, mental health diagnosis, sleep apnea, morbid obesity)? @ -none Was patient admitted / discharged? Hospital course, mention meds given and route, prescriptions, significant lab abnormalities, going to OR and other pertinent info. @ - 58 male with acute life stressor induced stress reaction. Patient will be discharged home something for severe periods of stress and anxiety and patient will follow-up with primary care for further evaluation regarding therapy and counseling Discharge Undiagnosed new problem with uncertain prognosis? @ -no Drug Therapy requiring intensive monitoring for toxicity (Heparin, Nitro, Insulin, Cardizem)? @ -no Were any procedures done? @ -no Diagnosis/symptom? @ -Life stressors, stress reaction, anxiety with panic attack Acute, or Chronic, or Acute on Chronic? @ -Acute Uncomplicated (without systemic symptoms) or Complicated (systemic symptoms)? @ -Complicated Side effects of treatment? @ -no Exacerbation, Progression, or Severe Exacerbation? @ -exacerbation Poses a threat to life or bodily function? How? (Chest pain, [place], CA, pneumonia, PE, COPD, DKA, ARF, appy, cholecystitis, CVA, Diverticulitis, Homicidal, Suicidal, threat to staff... and all critical care pts) @ -yes significant stress reaction Reevaluation #5: Differential Palpitations Ventricular arrhythmias, atrial arrhythmias, myocardial infarction, anemia, thyrotoxicosis, electrolyte imbalance, hypokalemia, pulmonary embolism, pulmonary disease, drugs, alcohol, anxiety, stress.... This is not meant to be an all-inclusive list. Medical Decision Making - Medical Decision Making 58 male with acute life stressor induced stress reaction. Patient will be discharged home something for severe periods of stress and anxiety and patient will follow-up with primary care for further evaluation regarding therapy and counseling - Lab Data Result diagrams: 12/03/23 13:09 12/03/23 13:09 Lab Results 12/03/23 12/03/23 12/03/23 Range/Units 13:09 13:09 13:09 WBC 9.1 (3.8-10.6) k/uL RBC 4.92 (4.30-5.90) m/uL Hgb 16.1 (13.0-17.5) gm/dL Hct 46.8 (39.0-53.0) % MCV 95.2 (80.0-100.0) fL MCH 32.8 (25.0-35.0) pg MCHC 34.4 (31.0-37.0) g/dL RDW 12.5 (11.5-15.5) % Plt Count 246 (150-450) k/uL MPV 7.7 Neutrophils % 75 % Lymphocytes % 14 % Monocytes % 6 % Eosinophils % 2 % Basophils % 1 % Neutrophils # 6.9 (1.3-7.7) k/uL Lymphocytes # 1.3 (1.0-4.8) k/uL Monocytes # 0.6 (0-1.0) k/uL Eosinophils # 0.2 (0-0.7) k/uL Basophils # 0.1 (0-0.2) k/uL Sodium 138 (137-145) mmol/L Potassium 4.3 (3.5-5.1) mmol/L Chloride 108 H (98-107) mmol/L Carbon Dioxide 21 L (22-30) mmol/L Anion Gap 9 mmol/L BUN 16 (9-20) mg/dL Creatinine 0.93 (0.66-1.25) mg/dL Est GFR (CKD-EPI)AfAm >90 (>60 ml/min/1.73 sqM) Est GFR (CKD-EPI)NonAf 90 (>60 ml/min/1.73 sqM) Glucose 100 H (74-99) mg/dL Calcium 8.9 (8.4-10.2) mg/dL Phosphorus 3.1 (2.5-4.5) mg/dL Magnesium 2.0 (1.6-2.3) mg/dL Total Bilirubin 0.7 (0.2-1.3) mg/dL AST 34 (17-59) U/L ALT 61 H (4-49) U/L Alkaline Phosphatase 96 (38-126) U/L Troponin I <0.012 (0.000-0.034) ng/mL NT-Pro-B Natriuret Pep 72 pg/mL Total Protein 6.6 (6.3-8.2) g/dL Albumin 4.1 (3.5-5.0) g/dL TSH 3.430 (0.465-4.680) mIU/L - EKG Data -: EKG Interpreted by Me (EKG is sinus 62 GA 120 QRS 118 QTc 403) Disposition Clinical Impression: Anxiety, Panic attack, Stress reaction Disposition: HOME SELF-CARE Condition: Fair Instructions (If sedation given, give patient instructions): Anxiety (ED) Prescriptions: LORazepam [Ativan] 2 mg PO TID 3 Days #9 tab Is patient prescribed a controlled substance at d/c from ED?: Yes When asked, does pt state using other controlled substances?: No If prescribed controlled substance>3 days was MAPS reviewed?: Prescribed <3 Days If opioid is for acute pain is fill amount 7 days or less?: No If Rx opioid, was Start Talking consent form obtained?: No Referrals: Bandar Adamson MD [Primary Care Provider] - 1-2 days Time of Disposition: 14:40
[2023-12-03] MEDS: LORazepam 2 MG/ML INJ IV STA (13:13)
[2023-12-03] MEDS: SODIUM CHLORIDE 0.9% 1,000 ML IV STA (13:14)
[2023-12-03 13:31] LABS: Basophils # (A) 0.1 k/uL (0-0.2); Basophils % (A) 1 %; Eosinophils # (A) 0.2 k/uL (0-0.7); Eosinophils % (A) 2 %; HCT 46.8 % (39.0-53.0); HGB 16.1 gm/dL (13.0-17.5); Lymphocytes # (A) 1.3 k/uL (1.0-4.8); Lymphocytes % (A) 14 %; MCH 32.8 pg (25.0-35.0); MCHC 34.4 g/dL (31.0-37.0); MCV 95.2 fL (80.0-100.0); Mean Platelet Volume 7.7; Monocytes # (A) 0.6 k/uL (0-1.0); Monocytes % (A) 6 %; Neutrophils # (A) 6.9 k/uL (1.3-7.7); Neutrophils % (A) 75 %; Platelet Count 246 k/uL (150-450); RBC 4.92 m/uL (4.30-5.90); RDW 12.5 % (11.5-15.5); WBC 9.1 k/uL (3.8-10.6)
[2023-12-03 14:07] LABS: ALT 61 U/L (4-49); AST 34 U/L (17-59); African American GFR (CKD) >90 (>60 ml/min/1.73 sqM); Albumin 4.1 g/dL (3.5-5.0); Alkaline Phosphatase 96 U/L (38-126); Anion Gap 9 mmol/L; Blood Urea Nitrogen 16 mg/dL (9-20); Calcium 8.9 mg/dL (8.4-10.2); Carbon Dioxide 21 mmol/L (22-30); Chloride 108 mmol/L (98-107); Glucose 100 mg/dL (74-99); Non-African American GFR(CKD) 90 (>60 ml/min/1.73 sqM); Phosphorus 3.1 mg/dL (2.5-4.5); Potassium 4.3 mmol/L (3.5-5.1); Sodium 138 mmol/L (137-145); Total Bilirubin 0.7 mg/dL (0.2-1.3); Total Protein 6.6 g/dL (6.3-8.2)
[2023-12-03 14:13] LABS: NT-Pro-B-Type Natriuretic Pept 72 pg/mL
[2023-12-03] MEDS: LORazepam 1 MG TAB PO STA (14:55)
[2023-12-03 15:26] VITALS: BP 144/89; PULSE 55; RESP 16; TEMP 98.7
== END 2023-12-03 15:18 | disposition home or self-care (01) ==
LOC: EC 11:54
DX: F41.0 Panic disorder [episodic paroxysmal anxiety] (principal); F43.9 Reaction to severe stress, unspecified
CPT/HCPCS: 36415; 93005; 83880; 80053; 83735; 84100; 84443; 84484; 85025; 99284; 96374; 96361; J2060